=== PATIENT | female | born 1990 | race Caucasian/White ===

== ENCOUNTER 2016-10-20 20:36 | Emergency (ER) | payer OTHER ==
[~2016-10-20] VITALS: Ht 154.9 cm; Wt 84.4 kg
[~2016-10-20 20:36] MED LIST: BENTYL 10 MG CA10 MG PO; CIPRO 500MG TA500 MG PO; CIPROFLOXACIN750 MG PO
--- NOTE | 2016-10-20 21:41 | ED HAND/WRIST INJURY COMPLAINT ---
History of Present Illness General Chief Complaint: Laceration Procedure Stated Complaint: LAC TO LEFT HAND INDEX FINGER Source: patient Exam Limitations: no limitations Vital Signs & Intake/Output Vital Signs & Intake/Output Vital Signs Date Time Temp Pulse Resp B/P B/P Pulse O2 O2 Flow FiO2 Mean Ox Delivery Rate 10/20 2153 97.4 72 16 115/65 99 Room Air 10/20 2053 98.3 76 18 134/82 98 Room Air Allergies Coded Allergies: MDX - Cefaclor (From CECLOR) (Severe, HIVES/THROAT CLOSURE 03/23/14) Reconcile Medications No Known Home Medications Triage Note: L INDEX FINGER LAC FROM [facility] 15 MINS [facility]ENTER CONSULTANT. CLEANED WITH PEROXIDE IN TRIAGE AND NONSTICK PRESSURE DRESSING APPLIED. WELL APPROXIMATED 1CM LAC TO SIDE PAD OF FINGER, BLEEDING CONTROLLED. UNSURE OF TETANUS. MEDICATED WITH MOTRIN IN TRIAGE Triage Nurses Notes Reviewed? yes Occurred: just prior to arrival Duration: hour(s):, constant, continues in ED Timing: single episode today Injury Environment: home Severity: moderate, severe Pain/Injury Location: Left: 2nd finger. Context: laceration No Modifying Factors: none : No Patient currently breastfeeds: No HPI: 26-year-old female comes into emergency room with laceration to left index finger. Patient reports that she cut it with scissors while cutting hair. Associated bleeding. Last tetanus shot unknown. Denies any other associated symptoms. Past History Travel History Traveled to [place] past 21 day No Medical History Any Pertinent Medical History? 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 aunt (gall stones). FATHER FATHER (gall stones). Hx Contributory? No Review of Systems Review of Systems Constitutional: Reports: no symptoms. EENTM: Reports: no symptoms. Respiratory: Reports: no symptoms. Cardiovascular: Reports: no symptoms. GI: Reports: no symptoms. Genitourinary: Reports: no symptoms. Musculoskeletal: Reports: no symptoms. Skin: Reports: see HPI. Neurological/Psychological: Reports: no symptoms. Hematologic/Endocrine: Reports: see HPI. Immunologic/Allergic: Reports: no symptoms. All Other Systems: Reviewed and Negative Physical Exam Physical Exam General Appearance: well developed/nourished Head: atraumatic Eyes: Bilateral: normal appearance. Ears, Nose, Throat: normal ENT inspection, hearing grossly normal Neck: normal inspection Cardiovascular/Respiratory: no respiratory distress Back: normal inspection Hand Left: 1st finger, Small avulsion of skin, active bleeding, Hand Right: normal inspection Neurologic/Tendon: normal sensation, normal motor functions, normal tendon functions, responds to pain, no evidence tendon injury, no pulse deficit Skin: intact, normal color, warm/dry Lymphatic: no anterior cervical laura Progress Differential Diagnosis: contusion, dislocation, felon, fracture, gout, paronychia, septic arthritis, tenosynovitis Plan of Care: Current Medications Sig/Sara Start time Last Medication Dose Stop Time Status Admin Tetanus/Diphtheria 0.5 ML ONCE ONE 10/20 2144 UNVr 10/20 Toxoids Adsorbed 10/20 ([facility]) Departure Departure Disposition: HOME OR SELF CARE Condition: Stable Clinical Impression Primary Impression: Avulsion of skin of finger Referrals: HAILEY ELLIS MD (PCP/Family) Additional Instructions: Keep dressing on until Wednesday. Take outer dressing off. Soak in warm water. Keep covered with bacitracin. Return if any other concerns. Please go over all results of today's visit with your primary care doctor. Contact your primary care doctor to let them know you were here in the emergency room. There may be nonspecific findings which may not be related to your visit today here in the emergency room but may require further evaluation and chronic monitoring by your primary care doctor. If you had a laceration today the chance of foreign body always remains. You should follow-up with your primary care doctor for recheck in 3-5 days for a wound check. If you had an x-ray done there is a chance that a fracture could have been missed on initial read and you should follow-up with your primary care doctor for repeat x-rays if symptoms persist. If your blood pressure was elevated here in the emergency room please have rechecked by her primary care doctor within the next 48 hours by your primary care doctor. If you were prescribed a narcotic here in the emergency room or any type of controlled substances you're not allowed to drive while taking this medication or operate any type of heavy machinery. Narcotics can make you feel lightheaded dizziness nausea and can cause constipation. You may need to picker tender a stool softener. Thank you for choosing [facility] emergency room. Please return to the emergency room immediately if you have any other concerns worsening of symptoms. Departure Forms: Customer Survey General Discharge Information Prescriptions: Current Visit Scripts No Known Home Medications Procedures Additional Procedures Progress: Local 1% lidocaine injected, 2 mL, Betadine prepp, irrigated with peroxide, Kaltostat dressings placed, wrapped ice, compression dressing, no bleeding through, patient tolerated procedure well
[2016-10-20 21:54] VITALS: BP 115/65
== END 2016-10-20 22:04 ==
LOC: ERH 20:36
DX: S61.201A Unspecified open wound of left index finger without damage to nail, initial encounter (principal); W27.2XXA Contact with scissors, initial encounter; Y93.89 Activity, other specified; Y92.9 Unspecified place or not applicable
CPT/HCPCS: 90471; 90714